=== PATIENT | female | born 1985 ===

== ENCOUNTER 2019-08-06 17:01 | Inpatient (IN) | payer BC ==
[2019-08-06] MEDS ORDERED: Lactated Ringers 1000 ML Bag* 1,000 ML IV ONE ×2 (17:34→18:28)
--- NOTE | 2019-08-06 17:47 | HP ---
General Information - Reason for Visit IUP at 38-12/04 in labor - General Information Maternal Age: 33 Grav: 3 Para: 1 SAB: 1 IEA: 0 Estimated Due Date: 08/19/19 Determined By: Early Ultrasound Gestational Age in Weeks/Days: 38-12/04 Maternal Blood Type and Rh: A Positive - Results this Serology/RPR Result: Non-Reactive Rubella Result: Immune HBsAg Result: Negative HIV Result: Negative GBS Culture Result: Negative Past Medical History Delivery History: Hx Uncomplicated Vaginal Delivery Delivery History Comment: 06/2016 1st trimester miscarriage. D&C 04/2017 8lb 8oz male. Delivered at [facility] Pertinent Past Medical History: See Records Past Medical History Comment: Migraine without aura Eczema Pertinent Past Surgical History: See Records Past Surgical History Comment: 2006 LEEP Pertinent Family History: See Records Family History Comment: PGM: , [place] MGM: , Polycythemia MGF: , Alzheimer's Disease - Antepartal Records Antepartal Records: Reviewed, Uncomplicated - 33 week transfer. Complete records received and reviewed Review of Systems Constitutional: Uncomfortable - with UCs CV Complaint: No Respiratory: Shortness of Breath: No Gastrointestinal: No Nausea/Vomiting, Normal Bowel Movement Genitourinary: No Dysuria, No Bleeding, No Leaking Fluid Musculoskeletal: No Complaint, No Epigastric Pain Neurological: No Headache, No Visual Changes Movement: Normal Exam Allergies/Adverse Reactions: Allergies No Known Allergies Allergy (Verified 08/06/19 17:27) BP 120/78 HR 90bpm SpO2 100% on RA - Measurements Height: 5 ft 4 in Weight: 175 lb Weight in lbs: [phone] Body Mass Index (BMI): 30.0 Pre- Weight: 140 lb Weight Gained This : 35 lbs and 0 ozs - Exam Breast: Breast Exam Deferred CVA: No CVA Tenderness Extremities: No Edema Heart: Normal Rhythm/Heart Sounds HEENT: No Significant Findings Lungs: Clear Bilaterally Rectal: Rectal Exam Deferred Reflexes: DTR 2+ Thyroid: No Thyromegaly - Abdominal Exam Abdomen Exam: Non-Tender Targeted Exam Findings Estimated Weight: EFW 8lbs Cervical Exam: 4cm, 5cm Effacement: 90% Station: -1 Presenting Part: Vertex Membrane Status: Bulging Sterile Speculum Exam: Not done Bleeding/Discharge: None EFM Findings - External Monitor Findings Baseline Heart Rate: 125 External Monitor Findings: Accelerations Present, No Pattern of Variable or Late Decelerations, Variability Moderate, Baseline Stable External Monitor Findings Comment: No evidence of metabolic acidemia Contractions: Regular, Moderate Contraction Frequency: q 2-3 Assessment/Plan - Assessment IUP at 38-1/7 in labor No evidence of metabolic acidemia - Plan Plan: Admit - Anticipate Vaginal Delivery Plan Comment: Pt reports that she may desire a CEI for analgesia in labor. Agrees to IV placement. - Date/Time of Admission Date of Admission: 08/06/19 Time of Admission: 17:40
[2019-08-06 18:07] LABS: ABS Basophils 0.1 10^3/ul (0-0.2); ABS Lymphocytes 2.7 10^3/ul (1.0-4.8); ABS Nucleated RBC 0.2 10^3/ul; Eosinophil % 0.1 %; Hematocrit 41 % (35-47); Hemoglobin 13.5 g/dL (12.0-16.0); Lymphocyte % 16.3 %; Mean Corpuscular HGB Conc 33 g/dL (31-36); Mean Corpuscular Hemoglobin 29 pg (27-31); Mean Corpuscular Volume 87 fL (80-97); Mean Platelet Volume 10.5 fL (7.4-10.4); Nucleated Red Blood Cells % 0.9; Platelet Count 251 10^3/uL (150-450); Red Cell Distribution Width 14 % (10-15); White Blood Count 16.8 10^3/uL (3.5-10.8)
[2019-08-06] MEDS ORDERED: OBEPIDURAL* 250 ML EPIDURAL ONE (18:07)
[2019-08-06] MEDS ORDERED: Bupivacaine 0.25% SDV PF* 10 ML VIAL INJ ONE (18:08)
[2019-08-06] MEDS ORDERED: Sodium Citrate/Citric Acid* 15 ML UDC PO PRN (18:28)
[2019-08-06] MEDS ORDERED: Famotidine TAB* 20 MG PO PRN (18:28)
[2019-08-06] MEDS ORDERED: EPHEDrine (Pressors)* 50 MG/ML VIAL IV PUSH PRN (18:28)
[2019-08-06] MEDS ORDERED: Phenylephrine 40 MCG/ML SYRINGE IV PUSH PRN (18:28)
[2019-08-06 18:33] LABS: Urine Benzodiazepine Screen None Detected (None Detect); Urine Opiates Screen None Detected (None Detect)
[2019-08-06] MEDS ORDERED: Lactated Ringers 1000 ML Bag* 1,000 ML IV SCH ×2 (19:00→20:00)
[2019-08-06] MEDS ORDERED: OBEPIDURAL* 250 ML EPIDURAL SCH (19:00)
[2019-08-06] MEDS ORDERED: Dibucaine 1% 28.35 GM TUBE PR PRN (19:59)
[2019-08-06] MEDS ORDERED: Witch Hazel PAD* JAR TOPICAL PRN (19:59)
[2019-08-06] MEDS ORDERED: Glycerin ADULT SUPP PR PRN (19:59)
[2019-08-06] MEDS ORDERED: Acetaminophen TAB* 325 MG PO PRN (19:59)
--- NOTE | 2019-08-06 20:04 | PROCNOTE ---
[facility] OB: Delivery Note - Delivery A Date of : 08/06/19 Time of : 17:39 [place] Sex: Female Score 1 Minute: 10 Score 5 Minutes: 10 Gestational Age in Weeks and Days at Delivery: 38 Weeks and 1 Days Delivery Method: Spontaneous Vaginal Labor: Spontaneous Did Patient attempt ?: N/A, No Previous Amniotic Fluid: Clear Estimated Blood Loss: 300 Anesthesia/Analgesia: CEI for Labor - placed by [place] Delivered By: Patrick Baltazar - Nursery Level of Nursery: Regular/Bedside - Perineum Perineal Injury: None/Intact Perineal Repair: None - Additional Delivery Notes Additional Delivery Notes: Pt admitted in labor. Received epidural per preference with excellent relief. Spontaneous rupture of membranes to clear fluid with expected progression to complete. Length of labor 5 hours, 42 min. Pushed x 8 min. liveborn female. Slow, controlled delivery of head. OA to ROT. Shoulders followed easily. vigorous with spontaneous cry. HR>110bpm. Apgars 10/10. Delivered to maternal abdomen. Cord clamped x 2 and cut by FOB when pulsations ceased. Spontaneous delivery intact placenta. Membranes complete. Fundus firm to massage with minimal bleeding. Perineum intact. No repair needed as above. EBL 300mL. At time of note mother and in stable condition. Planning to breast feed.
[2019-08-06] MEDS: Ibuprofen TAB* 600 MG PO SCH (20:57)
[2019-08-06] MEDS ORDERED: Simethicone TAB* 80 MG TAB.CHEW PO SCH (21:00)
[2019-08-07] MEDS: Docusate CAP* 100 MG PO SCH ×4 (00:49→20:26)
[2019-08-07] MEDS: Ibuprofen TAB* 600 MG PO SCH ×4 (06:11→20:25)
[2019-08-07] MEDS ORDERED: Ferrous Gluconate TAB* 324 MG TAB PO SCH (09:00)
[2019-08-07 09:38] LABS: ABS Basophils 0.1 10^3/ul (0-0.2); ABS Eosinophils 0.1 10^3/ul (0-0.6); ABS Lymphocytes 2.9 10^3/ul (1.0-4.8); ABS Monocytes 0.8 10^3/ul (0-0.8); ABS Neutrophils 14.7 10^3/ul (1.5-7.7); ABS Nucleated RBC 0.1 10^3/ul; Eosinophil % 0.3 %; Hematocrit 37 % (35-47); Hemoglobin 12.3 g/dL (12.0-16.0); Lymphocyte % 15.7 %; Mean Corpuscular HGB Conc 33 g/dL (31-36); Mean Corpuscular Hemoglobin 29 pg (27-31); Mean Corpuscular Volume 88 fL (80-97); Nucleated Red Blood Cells % 0.5; Platelet Count 242 10^3/uL (150-450); Red Blood Count 4.26 10^6 /uL (3.70-4.87); Red Cell Distribution Width 14 % (10-15); White Blood Count 18.6 10^3/uL (3.5-10.8)
[2019-08-07 20:12] VITALS: BP 127/80
[2019-08-08] MEDS: Ibuprofen TAB* 600 MG PO SCH ×2 (04:25→09:33)
[2019-08-08] MEDS: Docusate CAP* 100 MG PO SCH (09:33)
== END 2019-08-08 15:17 | disposition home or self-care (01) | DRG 560 ==
LOC: MCHOBOUT 17:01 → MCHOB 17:31
PROVIDERS: ADMIT Midwife; ATTEND Midwife
PROC: 10E0XZZ Delivery of Products of Conception, External Approach (ICD-10-PCS; principal; 2019-08-06)
DX: O80 Encounter for full-term uncomplicated delivery (principal); Z37.0 Single live birth; Z3A.38 38 weeks gestation of pregnancy
CPT/HCPCS: 36415; 80307; 85025; 86850; 86900; 86901; A9270-GY; J3490